=== PATIENT | male | born 1965 | race Caucasian/White ===

== ENCOUNTER 2017-06-07 13:11 | Emergency (ER) | payer OTHER ==
[~2017-06-07 13:11] MED LIST: Sodium Chloride Irrig Solution 250 ML BOT ONE; Sterile Water Irrigation 250 ML BOT ONE
[2017-06-07] MEDS ORDERED: Cephalexin 250 MG CAP ONE (14:15)
[2017-06-07] MEDS ORDERED: Triple Antibiotic Oint 1 GM Packet ONE (14:15)
[2017-06-07] MEDS ORDERED: Adacel (T-DAP) 0.5 ML VIAL ONE (14:15)
== END 2017-06-07 14:25 | disposition home or self-care (01) ==
LOC: MADERS 13:11
DX: S61.412A Laceration without foreign body of left hand, initial encounter (principal); W26.0XXA Contact with knife, initial encounter
CPT/HCPCS: 12002; 90471; 90715; J2001